=== PATIENT | male | born 1985 | race African-American/Black ===

== ENCOUNTER 2016-10-16 15:51 | Emergency (ER) | payer OTHER ==
[~2016-10-16] VITALS: Ht 175.3 cm; Wt 74.0 kg
[~2016-10-16 15:51] MED LIST: ZOFR4TAB3 SL
[2016-10-16 15:53] VITALS: BP 143/79; PULSE 104; RESP 16; TEMP 98.3; O2SAT 97
[2016-10-16] MEDS ORDERED: PANT20TA2 PO (16:07)
[2016-10-16] MEDS ORDERED: AMOX875T PO (16:07)
[2016-10-16 16:22] VITALS: O2SAT 97
[2016-10-16] MEDS ORDERED: SODIUM CHLORIDE 0.9% FLUSH 5 ML FLUSH IVF PRN (16:30)
[2016-10-16] MEDS ORDERED: methylPREDNISolone SOD SUCC 125 MG/2 ML VIAL IVP ONE (16:30)
[2016-10-16] MEDS ORDERED: PROMETHAZINE/CODEINE 6.25 MG/10 MG/5 ML CUP PO ONE (16:30)
[2016-10-16] MEDS ORDERED: SODIUM CHLOR 0.9% 1000 ML INJ 1,000 ML IV ONE (16:30)
[2016-10-16] MEDS ORDERED: ONDANSETRON HCL 4 MG/2 ML VIAL IV PUSH ONE (16:30)
--- NOTE | 2016-10-16 16:36 | PD ---
HPI Chief Complaint: Cold / Flu Symptoms Time Seen by Provider: 16:07 Travel History International Travel<30 days: No Contact w/Intl Traveler<30days: No Traveled to known affect area: No History of Present Illness HPI Patient is a 31 year old male who presents to ER with his mother with complaints of increased cough and congestion for the past week. Patient reports that he has been coughing so much that he has not been able to keep down any food as he has post tussis emesis. Patient reports that his cough has been nonproductive, reports no fevers or chills with symptoms. Patient reports no abdominal pain with his symptoms as well, reports nausea and vomiting only with his coughing fits. Denies any fevers or chills. Denies any sick contacts. No other complaints. Patient currently is on Augmentin which was prescribed to him by [facility] on October 11, 2016. PFSH Past Medical History Autoimmune Disease: Yes Diminished Hearing: No GERD: Yes Musculoskeletal: Yes (SCOLIOSIS) Respiratory: Yes (bronchitis) Ulcer: Yes Influenza Vaccination: No Past Surgical History Surgical History: No Previous Surgery Social History Alcohol Use: Yes (SOCIALLY) Tobacco Use: No Substance Use: No Allergies-Medications (Allergen,Severity, Reaction): Coded Allergies: No Known Allergies (Verified , 10/16/16) Reported Meds & Prescriptions Reported Meds & Active Scripts Active Promethazine-Codeine Liq 6.25-10 Mg/5 Ml Syrp 10 Ml PO Q6H PRN 10 Days Tessalon Perles (Benzonatate) 100 Mg Cap 200 Mg PO TID PRN Prednisone 20 Mg Tab 20 Mg PO BID 5 Days Proair Hfa 8.5 GM Inh (Albuterol Sulfate) 90 Mcg/Act Aer 2 Puff INH Q4-6H PRN 108 mcg/actuation Reported Pantoprazole (Pantoprazole Sodium) 20 Mg Tab 20 Mg PO DAILY Amoxicillin 875 Mg Tab 875 Mg PO BID Review of Systems General / Constitutional: No: Fever Eyes: No: Visual changes HENT: No: Headaches Cardiovascular: No: Chest Pain or Discomfort Respiratory: Positive: Cough, No: Shortness of Breath Gastrointestinal: No: Abdominal Pain Genitourinary: No: Dysuria Musculoskeletal: No: Pain Skin: No Rash Neurologic: No: Weakness Psychiatric: No: Depression Endocrine: No: Polydipsia Hematologic/Lymphatic: No: Easy Bruising Physical Exam Narrative GENERAL: nad, nontoxic SKIN: Warm and dry. HEAD: Atraumatic. Normocephalic. EYES: Pupils equal and round. No scleral icterus. No injection or drainage. ENT: No nasal bleeding or discharge. Mucous membranes pink and moist. NECK: Trachea midline. No JVD. CARDIOVASCULAR: Regular rate and rhythm. No murmur appreciated. RESPIRATORY: No accessory muscle use. Clear to auscultation. Breath sounds equal bilaterally. GASTROINTESTINAL: Abdomen soft, non-tender, nondistended. Hepatic and splenic margins not palpable. MUSCULOSKELETAL: No obvious deformities. No clubbing. No cyanosis. No edema. NEUROLOGICAL: Awake and alert. No obvious cranial nerve deficits. Motor grossly within normal limits. Normal speech. PSYCHIATRIC: Appropriate mood and affect; insight and judgment normal. Data Data Last Documented VS Vital Signs Date Time Temp Pulse Resp B/P Pulse Ox O2 Delivery O2 Flow Rate FiO2 10/16/16 17:36 110 20 135/75 100 Room Air 10/16/16 15:53 98.3 Orders Complete Blood Count With Diff (10/16/16 16:16) Comprehensive Metabolic Panel (10/16/16 16:16) Influenzae A/B Antigen (10/16/16 16:16) Chest, Pa & Lat (10/16/16 16:16) Iv Access Insert/Monitor (10/16/16 16:16) Oximetry (10/16/16 16:16) Sodium Chloride 0.9% Flush (Ns Flush) (10/16/16 16:30) Methylprednisolone So Succ Inj (Solumedr (10/16/16 16:30) Albuterol Neb (Albuterol Neb) (10/16/16 16:30) Ondansetron Inj (Zofran Inj) (10/16/16 16:30) Sodium Chlor 0.9% 1000 Ml Inj (Ns 1000 M (10/16/16 16:30) Promethazine/Codeine Liq (Phenergan-Code (10/16/16 16:30) Labs Laboratory Tests Test 10/16/16 16:40 White Blood Count 3.1 TH/MM3 Red Blood Count 4.43 MIL/MM3 Hemoglobin 12.8 GM/DL Hematocrit 38.6 % Mean Corpuscular Volume 87.2 FL Mean Corpuscular Hemoglobin 28.9 PG Mean Corpuscular Hemoglobin 33.1 % Concent Red Cell Distribution Width 12.7 % Platelet Count 357 TH/MM3 Mean Platelet Volume 9.0 FL Neutrophils (%) (Auto) 31.3 % Lymphocytes (%) (Auto) 33.8 % Monocytes (%) (Auto) 24.1 % Eosinophils (%) (Auto) 9.7 % Basophils (%) (Auto) 1.1 % Neutrophils # (Auto) 1.0 TH/MM3 Lymphocytes # (Auto) 1.1 TH/MM3 Monocytes # (Auto) 0.8 TH/MM3 Eosinophils # (Auto) 0.3 TH/MM3 Basophils # (Auto) 0.0 TH/MM3 CBC Comment DIFF FINAL Differential Comment Sodium Level 138 MEQ/L Potassium Level 3.9 MEQ/L Chloride Level 103 MEQ/L Carbon Dioxide Level 26.2 MEQ/L Anion Gap 9 MEQ/L Blood Urea Nitrogen 9 MG/DL Creatinine 1.04 MG/DL Estimat Glomerular Filtration 100 ML/MIN Rate Random Glucose 85 MG/DL Calcium Level 9.0 MG/DL Total Bilirubin 0.3 MG/DL Aspartate Amino Transf 18 U/L (AST/SGOT) Alanine Aminotransferase 43 U/L (ALT/SGPT) Alkaline Phosphatase 89 U/L Total Protein 7.9 GM/DL Albumin 3.5 GM/DL MDM Medical Decision Making Medical Screen Exam Complete: Yes Emergency Medical Condition: Yes Interpretation(s) Vital Signs Date Time Temp Pulse Resp B/P Pulse Ox O2 Delivery O2 Flow Rate FiO2 10/16/16 16:22 97 Room Air 10/16/16 15:53 98.3 104 16 143/79 97 Differential Diagnosis Pneumonia, influenza, pneumothorax, viral syndrome Narrative Course 31-year-old male who presents to emergency room with complaints of cough congestion for the past 2 weeks. Patient with no fevers or chills. Patient reports that every time he has coughing fits, he throws up. Patient reports that he feels nauseous at this time. Patient has been on Augmentin for the past 6 days for his bronchitis. Patient has been taking over the counter cough medications which has not helped him. Overall patient nontoxic and evaluation. Plan give patient IV fluids, and antiemetics. We'll ordered chest x-ray. Ultimately, patient will require steroids as well as cough medications to be discharged home with Patient reevaluated, patient reports that she is feeling much better at this time. All labs and all studies reviewed with patient as well as mother. Patient instructed to complete his full course of antibiotics. We'll add steroids as well as cough medication. Patient will follow up with his primary care doctor return to ER as needed. Patient tolerating fluids at this time. Diagnosis Primary Impression: Bronchitis Patient Instructions: General Instructions Additional Instructions: Return to ER as needed Please call your primary care doctor for earliest follow-up in 1-2 days Complete all antibiotics Med/Other Pt SpecificInfo: Prescription(s) given Scripts Promethazine-Codeine Liq 6.25-10 Mg/5 Ml Syrp10 Ml PO Q6H PRN (COUGH AND/OR COLD SYMPTOMS) 10 Days Ref 0 Prov:Santa Meeks DO 10/16/16 Benzonatate (Tessalon Perles)100 Mg Sse631 Mg PO TID PRN (COUGH) #30 CAP Ref 0 Prov:Santa Meeks DO 10/16/16 Prednisone 20 Mg Tab20 Mg PO BID 5 Days Ref 0 Prov:Santa Meeks DO 10/16/16 Albuterol 8.5 GM Inh (Proair Hfa 8.5 GM Inh)90 Mcg/Act Aer2 Puff INH Q4-6H PRN ( SHORTNESS OF BREATH) #1 INHALER Ref 0 108 mcg/actuation Prov:Santa Meeks DO 10/16/16 Disposition: 01 DISCHARGE HOME Condition: Stable Santa Meeks DO Oct 16, 2016 16:36
[2016-10-16] MEDS: RESP: ALBUTEROL 2.5 MG/3 ML NEB (SCH) INH (16:37)
[2016-10-16 17:12] LABS: BASOPHIL % 1.1 % (0.0-2.0); EOSINOPHIL # 0.3 TH/MM3 (0-0.4); EOSINOPHIL % 9.7 % (0.0-4.0); HEMATOCRIT 38.6 % (39.0-51.0); HEMO FLAGS DIFF FINAL; LYMPH % 33.8 % (9.0-44.0); LYMPHOCYTE # 1.1 TH/MM3 (1.0-4.8); MEAN CELL VOLUME 87.2 FL (80.0-100.0); MEAN CORPUSCULAR HEMOGLOBIN 28.9 PG (27.0-34.0); MEAN CORPUSCULAR HGB CONC 33.1 % (32.0-36.0); MONO % 24.1 % (0.0-8.0); NEUT % 31.3 % (16.0-70.0); PLATELET COUNT 357 TH/MM3 (150-450); RED BLOOD COUNT 4.43 MIL/MM3 (4.50-5.90); RED CELL DISTRIBUTION WIDTH 12.7 % (11.6-17.2); WHITE BLOOD COUNT 3.1 TH/MM3 (4.0-11.0)
[2016-10-16] MEDS ORDERED: PROM6.256 PO (17:20)
[2016-10-16] MEDS ORDERED: ALBUAER3 INH (17:20)
[2016-10-16] MEDS ORDERED: PRED20 PO (17:20)
[2016-10-16] MEDS ORDERED: BENZ100 PO (17:20)
[2016-10-16 17:36] VITALS: BP 135/75; PULSE 110; RESP 20; O2SAT 100
[2016-10-16 17:37] LABS: ALT (GPT) 43 U/L (12-78); ANION GAP 9 MEQ/L (5-15); AST (GOT) 18 U/L (15-37); BICARBONATE 26.2 MEQ/L (21.0-32.0); BLOOD UREA NITROGEN 9 MG/DL (7-18); CHLORIDE 103 MEQ/L (98-107); GLOMERULAR FILTRATION RATE 100 ML/MIN (>89); POTASSIUM 3.9 MEQ/L (3.5-5.1); SODIUM (NA) 138 MEQ/L (136-145)
[2016-10-16 17:40] LABS: ALKALINE PHOSPHATASE 89 U/L (45-117); TOTAL BILIRUBIN ADULT 0.3 MG/DL (0.2-1.0)
--- NOTE | 2016-10-16 17:48 | RADRPT ---
EXAM DATE/TIME: 10/16/2016 16:36 [facility] COMPARISON: No previous studies available for comparison. INDICATIONS : Short of breath from cough. MEDICAL HISTORY : None. SURGICAL HISTORY : None. ENCOUNTER: Initial ACUITY: 2 weeks PAIN SCORE: 7/10 LOCATION: Bilateral chest FINDINGS: PA and lateral views of the chest demonstrate the lungs to be symmetrically aerated without evidence of mass, infiltrate or effusion. The cardiomediastinal contours are unremarkable. Osseous structure s are intact except moderate dextroscoliosis. CONCLUSION: 1. No active disease. Moderate dextroscoliosis. Keith Guerrero MD on October 16, 2016 at 17:44 Board Certified Radiologist. This report was verified electronically.
== END 2016-10-16 18:31 | disposition home or self-care (01) ==
LOC: NEPC 15:51
DX: J40 Bronchitis, not specified as acute or chronic (principal); R06.02 Shortness of breath
CPT/HCPCS: 71020; 80053; 85025; 87804; 94640; 94664; 96361; 96374; 96375; 99283; J2405; J2930; J7030; J7613

== ENCOUNTER 2017-12-23 03:48 | Emergency (ER) | payer OTHER ==
[~2017-12-23 03:48] MED LIST changes: +ALBUAER3 INH; +AMOX875T PO; +BENZ100 PO; +PANT20TA2 PO; +PRED20 PO; +PROM6.256 PO; -ZOFR4TAB3 SL
[2017-12-23 03:51] VITALS: BP 137/98; PULSE 92; RESP 18; TEMP 98.5; O2SAT 99
--- NOTE | 2017-12-23 04:02 | PD ---
HPI Chief Complaint: Complaint Time Seen by Provider: 03:56 Travel History International Travel<30 days: No Contact w/Intl Traveler<30days: No Traveled to known affect area: No History of Present Illness HPI 32-year-old black male presents emergency department complains of a milky discharge from his penis and dysuria over the last day. He admits to unprotected intercourse. He denies any fever chills. No nausea vomiting. No rashes or lesions. Symptoms are moderate. No alleviating factor. Exacerbated by unprotected intercourse History Past Medical Histgory Medical History: Denies Significant Hx Past Surgical History Surgical History: No Previous Surgery Social History Alcohol Use: No Tobacco Use: No Allergies-Medications (Allergen,Severity, Reaction): Coded Allergies: No Known Allergies (Verified Adverse Reaction, Unknown, 12/23/17) Reported Meds & Prescriptions Reported Meds & Active Scripts Active No Active Prescriptions or Reported Medications Review of Systems Except as stated in HPI: all other systems reviewed are Neg Physical Exam Narrative GENERAL: This is a well-nourished, well-developed patient, in no apparent distress. SKIN: No rashes, ecchymoses or lesions. Warm and dry. HEAD: Atraumatic. Normocephalic. EYES: PERRL, EOMI, no discharge or injection. No scleral icterus. EARS: Clear NOSE: Nasal turbinates appear normal. THROAT: Mucosa pink and moist. Airway patent. NECK: Trachea midline. supple, moves head freely. LUNGS: Clear to auscultation. CV: Regular in rhythm. ABDOMEN: Soft nontender. EXT: No clubbing cyanosis or edema. Data Data Last Documented VS Vital Signs Date Time Temp Pulse Resp B/P (MAP) Pulse Ox O2 Delivery O2 Flow Rate FiO2 12/23/17 03:51 98.5 92 18 137/98 (111) 99 Orders Orders Gc And Chlamydia Pcr (12/23/17 04:24) Azithromycin Powd Pack (Zithromax Powd P (12/23/17 04:30) Ceftriaxone Inj (Rocephin Inj) (12/23/17 04:30) Sodium Chloride 0.9% Flush (Ns Flush) (12/23/17 04:30) Lidocaine 1% Inj (50 Ml) (Xylocaine 1% I (12/23/17 04:30) Ed Discharge Order (12/23/17 04:24) MDM Medical Screen Exam Complete: Yes Emergency Medical Condition: No Differential Diagnosis MDM: Moderate Differential diagnoses: Chlamydia, gonorrhea, syphilis, chancroid, hepatitis, HIV, herpes Narrative Course A medical screening exam was performed: At the time of evaluation the presenting medical condition was determined not to be of an emergent nature. The patient was given the option of receiving additional care, but declined. Patient was given options for additional community resources from which to obtain care. The Patient Has Been advised to seek medical attention for their presenting complaint. The patient has been advised to return to the ER at any time if an emergent condition develops. The patient has chosen to stay. We will collect a urine for GC and chlamydia. Patient is given Rocephin 250 mg IM and Zithromax 1 g IM. This is urethritis Primary Impression: Urethritis Patient Instructions: General Instructions Additional Instructions: Rest. Partner notification. Follow-up with the [facility] Department for further STD testing such as HIV, syphilis and hepatitis. No intercourse until all partners treated. Always use a condom. Return to the ER if any problems. Med/Other Pt SpecificInfo: No Meds Exist/No RX given Scripts No Active Prescriptions or Reported Meds Disposition: 01 DISCHARGE HOME Condition: Keith Lo Dec 23, 2017 04:02
[2017-12-23] MEDS ORDERED: SODIUM CHLORIDE 0.9% FLUSH 10 ML FLUSH IVF PRN (04:30)
[2017-12-23] MEDS ORDERED: cefTRIAXone 250 MG VIAL IM ONE (04:30)
[2017-12-23] MEDS ORDERED: LIDOCAINE HCL 1% 50 ML VIAL XX ONE (04:30)
[2017-12-23] MEDS ORDERED: AZITHROMYCIN PWD FOR SUSP 1 GM PACKET PO ONE (04:30)
[2017-12-23] MEDS ORDERED: AZITHROMYCIN 250 MG TAB PO ONE (05:25)
== END 2017-12-23 05:17 | disposition home or self-care (01) ==
LOC: NEPD 03:48
DX: N34.2 Other urethritis (principal)
CPT/HCPCS: 87491; 87591; 96372; 99283; J0696